=== PATIENT | male | born 1985 | race Caucasian/White ===

== ENCOUNTER 2023-10-10 15:59 | Outpatient (CLI) | payer BC, SELFPAY ==
--- NOTE | ~2023-10-10 | CT_ITS ---
EXAMINATION: CT sinus wo con DATE: 10/10/2023 16:25 INDICATION: Left chronic sinusitis TECHNIQUE: Computed tomography (CT) of the paranasal sinuses was performed without contrast. Iterativ e reconstruction technique was employed. Exam dose: 328.15 mGy-cm total exam DLP. COMPARISON: None FINDINGS: There is prominent leftward deviation of the nasal septum, particularly the lower portion. Opacified intralamellar cell of right middle nasal turbinate. Pat bullosa of left middle nasal turbinate. Moderately prominent soft tissue swelling of both nasal turbinates. There is soft tissue thickening at the maxillary ostium and extensive soft tissue thickening at the i nfundibulum bilaterally. There is soft tissue thickening at the right frontoethmoid area and patchy opacification of the ethmo id air cells, right greater than left. There is mild mucoperiosteal thickening of the sphenoid sinuses. There is very prominent mucoperiosteal thickening of the maxillary sinuses. The mastoid air cells are well developed and aerated bilaterally. IMPRESSION: Prominent leftward deviation of nasal septum Opacified intralamellar cell of right middle nasal turbinate. Pat bullosa of left middle nasal turbinate. Moderately prominent soft tissue swelling of both nasal turbinates Partial opacification of both ostiomeatal units There are prominent mucoperiosteal thickening of both maxillary sinuses Mild soft tissue thickening of the right frontoethmoid area Patchy opacification of ethmoid air cells and right greater than left Mild mucosal periosteal thickening of the sphenoid sinuses Reviewed, dictated and finalized at [facility]. Reviewed, dictated and finalized at [facility].
== END 2023-10-10 16:00 | disposition home or self-care (01) ==
LOC: ANHIMG 16:00
PROVIDERS: PCP Family Medicine; Visit Provider Physician Assistant
DX: J32.9 Chronic sinusitis, unspecified (principal); J34.2 Deviated nasal septum; J34.3 Hypertrophy of nasal turbinates
CPT/HCPCS: 70486

== ENCOUNTER 2025-07-02 09:46 | Outpatient (CLI) | payer BC, SELFPAY ==
--- NOTE | ~2025-07-02 | US_ITS ---
EXAM/PROCEDURE: US axilla RT HISTORY: R22.9 - Localized swelling, mass and lump, unspecified COMPARISON: None available. TECHNIQUE: Directed evaluation of the right upper extremity/axillary region where area of reported palpable concern is. FINDINGS: In the right axillary region, a fairly smoothly marginated, wider than tall hypoechoic lesion is seen measuring 2.8 x 1.2 x 0.2 cm. This appears to be located just below the dermis in the subcutaneous layer, with no clearly demonstrable flow on color flow images. No other lesion or mass seen. No drainable fluid collection seen. IMPRESSION: 2.8 x 1.2 x 0.2 cm benign-appearing lesion in the superficial subcutaneous soft tissues possibly representing sebaceous cyst or other benign lesion. Correlate with follow-up presentation and exam. If the lesion gets bigger or patient becomes more symptomatic, repeat ultrasound examination is recommended. Alternatively, consultation was surgical service may provide additional beneficial information. Reviewed, dictated and finalized at [facility] [employer] IMPRESSION: 2.8 x 1.2 x 0.2 cm benign-appearing lesion in the superficial subcutaneous soft tissues possibly representing sebaceous cyst or other benign lesion. Correlate with follow-up presentation and exam. If the lesion gets bigger or patient bec omes more symptomatic, repeat ultrasound examination is recommended. Hao galan, consultation was surgical service may provide additional beneficial inform ation.
== END 2025-07-02 09:47 | disposition home or self-care (01) ==
LOC: MICIMG 09:47
DX: R22.9 Localized swelling, mass and lump, unspecified (principal)
CPT/HCPCS: 76882